=== PATIENT | male | born 1995 | race Caucasian/White ===

== ENCOUNTER 2022-03-18 12:33 | Emergency (ER) | payer MEDICAID, OTHER ==
[~2022-03-18] VITALS: Ht 193 cm; Wt 163.2 kg
[2022-03-18 12:42] VITALS: BP 175/88
[2022-03-18 13:00] LABS: HEMATOCRIT 47.4 % (42.0-52.0); HEMOGLOBIN 15.9 g/dl (13.5-17.5); MEAN CORPUSCULAR HEMOGLOBIN 29.8 pg (27.0-33.0); MEAN CORPUSCULAR HGB CONC 33.5 g/dl (32.0-36.5); MEAN CORPUSCULAR VOLUME 88.9 fl (80.0-96.0); PLATELET COUNT, AUTOMATED 233 10^3/uL (150-450); RED BLOOD COUNT 5.33 10^6/uL (4.30-6.10); WHITE BLOOD COUNT 7.9 10^3/uL (4.0-10.0)
[2022-03-18 13:36] LABS: ACETAMINOPHEN LEVEL < 2.0 UG/ML (10.0-30.0); ALBUMIN 4.1 GM/DL (3.2-5.2); ALT/SGPT 43 U/L (12-78); BILIRUBIN,DIRECT < 0.1 MG/DL (0.0-0.2); BILIRUBIN,TOTAL 0.4 MG/DL (0.2-1.0); BLOOD UREA NITROGEN 16 MG/DL (7-18); CALCIUM LEVEL 9.2 MG/DL (8.5-10.1); CARBON DIOXIDE LEVEL 24 MEQ/L (21-32); CHLORIDE LEVEL 112 MEQ/L (98-107); CREATININE FOR GFR 0.92 MG/DL (0.70-1.30); ETHYL ALCOHOL (ETHANOL) < 0.003 % (0.000-0.010); GLOMERULAR FILTRATION RATE > 60.0 (>60); GLUCOSE, FASTING 105 MG/DL (70-100); POTASSIUM SERUM 4.2 MEQ/L (3.5-5.1); SALICYLATE LEVEL < 1.7 MG/DL (5.0-30.0); SODIUM LEVEL 142 MEQ/L (136-145); TOTAL PROTEIN 7.1 GM/DL (6.4-8.2)
[2022-03-18 13:54] LABS: RSV AMPLIFICATION NEGATIVE (NEGATIVE)
[2022-03-18 14:22] LABS: AMPHETAMINES LEVEL URINE NEGATIVE (NEGATIVE); BARBITURATES URINE NEGATIVE (NEGATIVE); BENZODIAZEPINES URINE NEGATIVE (NEGATIVE); CANNABINOIDS URINE POSITIVE (NEGATIVE); COCAINE METABOLITE URINE NEGATIVE (NEGATIVE); METHADONE URINE NEGATIVE (NEGATIVE); OPIATES URINE NEGATIVE (NEGATIVE); PHENCYCLIDINE URINE NEGATIVE (NEGATIVE)
== END 2022-03-18 18:52 | disposition home or self-care (01) ==
LOC: M ED 12:33
DX: Z04.6 Encounter for general psychiatric examination, requested by authority (principal); F90.9 Attention-deficit hyperactivity disorder, unspecified type

== ENCOUNTER 2025-03-15 21:31 | Inpatient (IN) | payer OTHER, SELFPAY ==
[~2025-03-15] VITALS: Ht 188 cm; Wt 180.9 kg
[2025-03-15 22:13] LABS: PLATELET COUNT, AUTOMATED 283 10^3/uL (150-450)
[2025-03-15 22:33] LABS: BARBITURATES URINE NEGATIVE (NEGATIVE); BENZODIAZEPINES URINE NEGATIVE (NEGATIVE); CANNABINOIDS URINE NEGATIVE (NEGATIVE); METHADONE URINE NEGATIVE (NEGATIVE); OPIATES URINE NEGATIVE (NEGATIVE); PHENCYCLIDINE URINE NEGATIVE (NEGATIVE)
[2025-03-15 22:35] LABS: ETHYL ALCOHOL (ETHANOL) < 0.003 % (0.000-0.010)
[2025-03-15 22:37] LABS: ALT/SGPT 42 U/L (7.0-40); AST/SGOT 27 U/L (<34); CALCIUM LEVEL 9.1 MG/DL (8.5-10.1); CARBON DIOXIDE LEVEL 24 MMOL/L (20-31); CHLORIDE LEVEL 107 MMOL/L (98-107); CREATININE FOR GFR 0.84 MG/DL (0.70-1.30); GLOMERULAR FILTRATION RATE > 90.0 (>60); POTASSIUM SERUM 4.4 MMOL/L (3.5-5.1); SALICYLATE LEVEL < 3.0 MG/DL (<30); SODIUM LEVEL 144 MMOL/L (136-145)
[2025-03-15 22:40] LABS: AMPHETAMINES LEVEL URINE POSITIVE (NEGATIVE); COCAINE METABOLITE URINE POSITIVE (NEGATIVE)
[2025-03-16] MEDS: UNRESOLVED CLARIFICATION ENTRY XX STA (02:44)
[2025-03-16] MEDS ORDERED: HOME MED LIST COMPLETE! XX SCH (09:55)
[2025-03-16 13:08] LABS: KETONE, URINE AUTO RFX NEGATIVE (NEGATIVE); LEUKOCYTE ESTERASE UR AUTO RFX NEGATIVE (NEGATIVE); MUCUS, URINE RFX SMALL (NEGATIVE); NITRITE, URINE AUTO RFX NEGATIVE (NEGATIVE); RBC, URINE AUTO RFX 0 /HPF (0-3); SQUAM EPITHELIAL CELL UR AURFX 0 /HPF (0-6); WBC, URINE AUTO RFX 1 /HPF (0-3)
[2025-03-17] MEDS ORDERED: MOM 30 ML SUSPENSION UDC PO PRN (10:20)
[2025-03-17] MEDS ORDERED: IBUPROFEN 400 MG TAB PO PRN (10:20)
[2025-03-17] MEDS ORDERED: OLANZapine 5 MG TAB PO PRN (10:20)
[2025-03-17] MEDS ORDERED: HALOPERIDOL 5 MG TAB PO PRN (10:20)
[2025-03-17] MEDS ORDERED: MAALOX 30 ML SUSP *UDC PO PRN (10:20)
[2025-03-17] MEDS ORDERED: ACETAMINOPHEN 325 MG TAB PO PRN (10:20)
[2025-03-17] MEDS: NICOTINE 14 MG/24 HR TRANSDERMAL TD SCH (12:11)
[2025-03-17 12:47] VITALS: BP 139/91; TEMP 96.9; O2SAT 96
[2025-03-17 15:43] VITALS: BP 133/91; TEMP 97; O2SAT 97
[2025-03-17] MEDS: LORazepam 1 MG TAB PO PRN (18:41)
[2025-03-18] MEDS ORDERED: PERMETHRIN 5% CREAM 60 GM TOP ONE (13:00)
[2025-03-18] MEDS: PERMETHRIN 5% CREAM 60 GM TOP ONE ×2 (20:12→20:13)
[2025-03-19 06:37] VITALS: BP 118/65; TEMP 98; O2SAT 97
[2025-03-19 15:53] VITALS: BP 129/74; TEMP 97.3; O2SAT 98
[2025-03-19] MEDS: traZODone 50 MG TAB PO PRN (20:48)
[2025-03-20] MEDS ORDERED: CLONI1TA PO (15:46)
[2025-03-20] MEDS ORDERED: ABIL1TAB11 PO (15:46)
[2025-03-20] MEDS ORDERED: TRAZ-252 PO (15:46)
[2025-03-20] MEDS ORDERED: HYDR-3363 PO (15:46)
[2025-03-21 06:36] VITALS: BP 135/73; TEMP 98; O2SAT 98
[2025-03-21 08:52] VITALS: BP 135/73
== END 2025-03-21 10:48 | disposition home or self-care (01) | DRG 751 ==
LOC: M ED 21:31 → M ED INP 03-17 10:19 → M PSY 03-17 11:55
PROVIDERS: ADMIT Internal Medicine; ATTEND Internal Medicine
DX: F33.1 Major depressive disorder, recurrent, moderate (principal); F14.20 Cocaine dependence, uncomplicated; F15.20 Other stimulant dependence, uncomplicated; E66.01 Morbid (severe) obesity due to excess calories; Z68.43 Body mass index [BMI] 50.0-59.9, adult; F41.1 Generalized anxiety disorder; F10.10 Alcohol abuse, uncomplicated; F17.200 Nicotine dependence, unspecified, uncomplicated; Z59.00 Homelessness unspecified

== ENCOUNTER 2025-04-09 19:02 | Emergency (ER) | payer MEDICAID, SELFPAY ==
[~2025-04-09] VITALS: Ht 188 cm; Wt 136.4 kg
[~2025-04-09 19:02] MED LIST: ABIL1TAB11 PO; CLONI1TA PO; HYDR-3363 PO; TRAZ-252 PO
[2025-04-09 19:16] VITALS: BP 147/94; TEMP 97; O2SAT 98
[2025-04-09 19:45] LABS: PLATELET COUNT, AUTOMATED 268 10^3/uL (150-450)
[2025-04-09 20:14] LABS: ETHYL ALCOHOL (ETHANOL) < 0.003 % (0.000-0.010)
[2025-04-09 20:16] LABS: SALICYLATE LEVEL < 3.0 MG/DL (<30)
[2025-04-09 20:20] LABS: ALT/SGPT 36 U/L (7.0-40); AST/SGOT 25 U/L (<34); CALCIUM LEVEL 7.5 MG/DL (8.5-10.1); CARBON DIOXIDE LEVEL 23 MMOL/L (20-31); CHLORIDE LEVEL 110 MMOL/L (98-107); CREATININE FOR GFR 1.05 MG/DL (0.70-1.30); GLOMERULAR FILTRATION RATE > 90.0 (>60); POTASSIUM SERUM 4.5 MMOL/L (3.5-5.1); SODIUM LEVEL 146 MMOL/L (136-145)
[2025-04-10 00:23] LABS: BARBITURATES URINE NEGATIVE (NEGATIVE); BENZODIAZEPINES URINE NEGATIVE (NEGATIVE); METHADONE URINE NEGATIVE (NEGATIVE); OPIATES URINE NEGATIVE (NEGATIVE); PHENCYCLIDINE URINE NEGATIVE (NEGATIVE)
[2025-04-10 00:24] LABS: AMPHETAMINES LEVEL URINE POSITIVE (NEGATIVE); CANNABINOIDS URINE POSITIVE (NEGATIVE); COCAINE METABOLITE URINE POSITIVE (NEGATIVE)
[2025-04-10] MEDS: KETOROLAC TROMETHAMINE 10 MG TAB PO ONE (01:15)
[2025-04-10] MEDS ORDERED: HOME MED LIST COMPLETE! XX SCH (02:35)
== END 2025-04-10 05:26 | disposition home or self-care (01) ==
LOC: M ED 19:02 → EDBD 19:02 → M ED 04-10 05:26
DX: F43.0 Acute stress reaction (principal); S92.414A Nondisplaced fracture of proximal phalanx of right great toe, initial encounter for closed fracture; X58.XXXA Exposure to other specified factors, initial encounter; F19.10 Other psychoactive substance abuse, uncomplicated; F17.200 Nicotine dependence, unspecified, uncomplicated; Z59.00 Homelessness unspecified